=== PATIENT | male | born 1965 | race Caucasian/White ===

== ENCOUNTER → 2018-10-19 | Outpatient (CLI) | payer BC ==
--- NOTE | 2018-10-19 13:42 | XR ---
EXAMINATION TYPE: XR shoulder complete LT DATE OF EXAM: 10/19/2018 COMPARISON: NONE HISTORY: 53 year-old male left shoulder pain TECHNIQUE: 4 views FINDINGS: [id number] degenerative joint space narrowing at the AC joint. Inferior spurring is present. Thorpe bacromial space is preserved. Bony irregularity and sclerosis of the greater tuberosity. Suggestion o f some loose bodies in the lateral deltoid shelf. Advanced degenerative changes at the glenoid renard l joint with near [id number] articulation. Multiple loose bodies are present. Multiple poorly infer ior spurring. No acute fracture or dislocation. IMPRESSION: 1. Advanced left glenohumeral joint OA. 2. Some loose bodies extend into the lateral deltoid shelf. This may reflect joint communication with the bursa which can be seen in the setting of a full-thickness rotator cuff tear. 3. 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
== END | disposition home or self-care (01) ==
LOC: RADXRMAIN 10:03
PROVIDERS: ATTEND Family Medicine
DX: M19.012 Primary osteoarthritis, left shoulder (principal)